=== PATIENT | female | born 1985 | race Caucasian/White ===

== ENCOUNTER 2017-08-06 04:02 | Inpatient (IN) | payer OTHER ==
[2017-08-06] MEDS ORDERED: RINGERS SOLUTION,LACTATED 1,000 ML IV PRN (04:34)
[2017-08-06] MEDS ORDERED: RINGERS SOLUTION,LACTATED 1,000 ML IV ONE (04:34)
[2017-08-06 04:41] LABS: APPEARANCE,URINE CLEAR; BILIRUBIN,URINE NEGATIVE (NEGATIVE); GLUCOSE, URINE NEGATIVE (NEGATIVE); KETONES,URINE NEGATIVE (NEGATIVE); LEUKOCYTE ESTERASE,URINE NEGATIVE (NEGATIVE); NITRITE,URINE NEGATIVE (NEGATIVE); PROTEIN,URINE NEGATIVE (NEGATIVE); URINE SPECIFIC GRAVITY 1.002; UROBILINOGEN,URINE NEGATIVE mg/dL (<2.0)
[2017-08-06 05:06] LABS: URINE BARBITURATES SCREEN NEGATIVE; URINE METHADONE SCREEN NEGATIVE; URINE OPIATES LOW NEGATIVE; URINE PHENCYCLIDINE SCREEN NEGATIVE
[2017-08-06 05:42] LABS: ABSOLUTE EOSINOPHILS # (AUTO) 0.1 10^3/uL (0.0-0.6); ABSOLUTE LYMPHOCYTES (AUTO) 1.7 10^3/uL (0.5-4.7); ABSOLUTE MONOCYTES (AUTO) 0.5 10^3/uL (0.1-1.4); ABSOLUTE NEUT (AUTO) 3.8 10^3/uL (1.7-8.2); BASOPHILS % (AUTO) 0.3 % (0-2); EOSINOPHILS % (AUTO) 1.2 % (0-6); HEMATOCRIT 37.6 % (36.0-47.0); HEMOGLOBIN 13.1 g/dL (12.0-15.5); HGB HCT DIFFERENCE 1.7; LYMPHOCYTES % (AUTO) 27.7 % (13-45); MEAN CORPUSCULAR HEMOGLOBIN 33.7 pg (27.0-33.4); MEAN CORPUSCULAR HGB CONC 34.9 g/dL (32.0-36.0); MEAN CORPUSCULAR VOLUME 97 fl (80-97); MONOCYTES % (AUTO) 8.2 % (3-13); RED CELL DISTRIBUTION WIDTH 13.2 % (11.5-14.0); SEGMENTED NEUTROPHILS % (AUTO) 62.6 % (42-78)
--- NOTE | 2017-08-06 08:49 | L&D Progress Notes ---
PROGRESS NOTES Datetime Report Generated by CPN: 08/06/2017 08:49 PROGRESS NOTE Comment: Irreg UC's, Cat 1 strip SIGNATURE SIGNATURE: [id number] Assignment: Dylan Ibarra DO Signature: with User ID: [email or web address] : with User ID: [email or web address]
[2017-08-06] MEDS ORDERED: OXYTOCIN/NORMAL SALINE 20 UNIT/1,000 ML RTUINJ IV PRN ×2 (10:55→21:49)
[2017-08-06] MEDS ORDERED: CEFAZOLIN 2 GM/D5W RTU 2 GM/50 ML RTUPB IV ONE ×2 (11:02→17:45)
[2017-08-06] MEDS ORDERED: OXYTOCIN/NORMAL SALINE 0 UNIT/0 ML RTUINJ ONE (11:02)
[2017-08-06] MEDS: CEFAZOLIN 2 GM/D5W RTU 2 GM/50 ML RTUPB IV SCH ×2 (11:09→17:44)
--- NOTE | 2017-08-06 12:55 | L&D Progress Notes ---
PROGRESS NOTES Datetime Report Generated by CPN: 08/06/2017 12:55 PROGRESS NOTE Impression: Normal Progression of Labor Plan: Continue Present Management; Augmentation Vital Signs : Reviewed; Within Normal Limits Comment: uc's q 3 min, Cat 1 strip, Pitocin infusing FETUS A FHR - Baseline: 125 Variability: Moderate 6-25bpm Accelerations: 15X15 Decelerations: None FETUS C SIGNATURE: [id number] Assignment: Dylan Ibarra DO Signature: with User ID: [email or web address] : with User ID: [email or web address]
--- NOTE | 2017-08-06 15:39 | L&D Progress Notes ---
PROGRESS NOTES Datetime Report Generated by CPN: 08/06/2017 15:39 PROGRESS NOTE Vital Signs : Reviewed; Within Normal Limits Comment: VE 5-6/100/vtx/0 + bloody show, FSE placed without difficulty due to not being able to continuously monitor heart rate Hsb at BS, irreg uc's declines epidural pt. has been sitting on birthing ball and would like to rest for awhile FETUS A FHR - Baseline: 155 Monitoring: Internal Scalp Electrode Variability: Minimal - Undetectable to <=5bpm Decelerations: None FETUS C SIGNATURE: [id number] Assignment: Dylan Ibarra DO Signature: with User ID: [email or web address] : with User ID: [email or web address]
[2017-08-06] MEDS ORDERED: OXYTOCIN/NORMAL SALINE 20 UNIT/1,000 ML RTUINJ ONE (17:23)
[2017-08-06] MEDS ORDERED: LIDOCAINE 1% INJ-PF (10 MG/ML) 30 ML SDV ONE (17:23)
[2017-08-06] MEDS ORDERED: MISOPROSTOL 0.2 MG TABLET ONE (17:23)
[2017-08-06] MEDS ORDERED: IBUPROFEN 800 MG TABLET ONE (20:48)
--- NOTE | 2017-08-06 21:27 | Delivery Summary ---
Del Sum A-C Datetime Report Generated by CPN: 08/06/2017 21:27 DELIVERY PERSONNEL DELIVERY PERSONNEL: [id number] Delivery Doctor:: Dylan Ibarra, DO Labor and Delivery Nurse:: Fabi Bhatt RNpublic policy analyst Nurse:: GABBIE Shepherd Office Services Associate/ROOM WORKER: Cassie Cutlerom, PCTS MATERNAL INFORMATION Delivery Anesthesia: None Medications After Delivery: Pitocin Drip 20 Units/1000ml NSS Estimated Blood Loss (ml): 250 Maternal Complications: Premature Rupture of Membranes Other Maternal Complications: rupture at 0200 Provider Comments: of viable female in MIKE position Loose nuchal cord x1, easily reduced Placenta delievered spontaneous and intact with 3v cord Fundus firm LABOR SUMMARY EDC: 08/16/2017 00:00 No. Babies in Womb: 1 Attempted: No Labor Anesthesia: None LABOR INFORMATION Reason for Induction: Not Applicable Onset of Labor: 08/06/2017 08:00 Complete Dilatation: 08/06/2017 18:05 Oxytocin: Augmentation Group B Beta Strep: Negative Antibiotics # of Doses: 2 Antibiotics Time of Last Dose: 1745 Name of Antibiotic Given: Ancef 2 Steroids Given: None Reason Steroids Not Administered: Not Applicable MEMBRANES Membranes Rupture Method: Spontaneous Rupture of Membranes: 08/06/2017 02:00 Length of Rupture (hr): 16.82 Amniotic Fluid Color: Clear Amniotic Fluid Amount: Small Amniotic Fluid Odor: None STAGES OF LABOR Stage 1 hr: 10 Stage 1 min: 5 Stage 2 hr: 0 Stage 2 min: 44 Stage 3 hr: 0 Stage 3 min: 4 Total Time in Labor hr: 10 Total Time in Labor min: 53 VAGINAL DELIVERY Episiotomy: None Laceration Extension: Second Degree Laceration Type: Perineal Other Laceration: perineal and clitorial Laceration Repair: Yes Laceration Repair Note: repaired with 2-0 and 3-0 chromic in usual fashion with good hemostasis Sponge Count Correct: N/A Sharps Count Correct: Yes CSECTION DELIVERY Primary Indication: N/A Secondary Indication: N/A CSection Incidence: N/A Labor: N/A Elective: N/A CSection Incision: N/A BABY A INFORMATION Infant Delivery Date/Time: 08/06/2017 18:49 Method of Delivery: Vaginal Born in Route : No : N/A Forceps: N/A Vacuum Extraction: N/A Shoulder Dystocia : No PRESENTATION/POSITION BABY A Presentation: Cephalic Cephalic Presentation: Vertex Vertex Position: Left Occipital Anterior Breech Presentation: N/A PLACENTA INFORMATION BABY A Placenta Delivery Time : 08/06/2017 18:53 Placenta Method of Delivery: Spontaneous Placenta Status: Delivered SCORES BABY A Heart Rate 1 min: >100 bpm Resp Effort 1 min: Good Cry Reflex Irritability 1 min: Cough or Sneeze or Pulls Away Muscle Tone 1 min: Active Motion Color 1 min: Blue/Pale Resuscitation Effort 1 min: Tactile Stimulation SCORE 1 MIN: 8 Heart Rate 5 min: >100 bpm Resp Effort 5 min: Good Cry Reflex Irritability 5 min: Cough or Sneeze or Pulls Away Muscle Tone 5 min: Active Motion Color 5 min: Body Sweet [place], Extremities Blue Resuscitation Effort 5 min: Tactile Stimulation SCORE 5 MIN: 9 INFANT INFORMATION BABY A Gestational Age at Delivery: 38.4 Gestational Status: Early Term- 37- 38.6 Weeks Infant Outcome : Liveborn Infant Condition : Stable Infant Sex: Female IDENTIFICATION BABY A Infant Verification Date/Time: 08/06/2017 19:37 ID Band Number: [id number] Mother's Name Verified: Yes RN Verifying Infant: R Rashel, RNC Additional Verifying Personnel: E Yolande, RN WEIGHT/LENGTH BABY A Infant Birthweight (gm): 2860 Infant Weight (lb): 6 Infant Weight (oz): 5 Infant Length (in): 19.25 Infant Length (cm): 48.90 CORD INFORMATION BABY A No. Cord Vessels: 3 Nuchal Cord : Around Neck x1, Loose Cord Blood Taken: Yes-For Eval (Mom's Blood Type - or O+) Suction: None ASSESSMENT BABY A Infant Complications: None Physical Findings at Delivery: Within Normal Limits Infant Respirations: Appears Normal Skin to Skin: Yes Skin to Skin Time (min): 70 Director Mobile/ALS Called : No Infant Care By: Sheldon Posey [facility] Transferred To: Remains with Mother SIGNATURES Signature: with User ID: [email or web address]
--- NOTE | 2017-08-06 21:39 | Admission Physical ---
Datetime Report Generated by CPN: 08/06/2017 21:39 CURRENT ADMISSION Hx Assessment: The History has been Reviewed and is Current Chief Complaint: Suspected Ruptured Membranes Admit Plan: Admit to Unit ALLERGIES Medication Allergies: No Known Allergies (08/06/2017) OBSTETRICAL HISTORY EDC: 08/16/2017 00:00 : 1 Para: 0 Term: 0 : 0 SAB: 0 IAB: 0 Livin (Annotations: Data stored by [facility] on behalf of user) Gestational Diabetes: No Rh Sensitization: No Incompetent Cervix: No YI: No Infertility: No ART Treatment: No Uterine Anomaly: No IUGR: No Hx Previous C/S: No Macrosomia: No Hx Loss/Stillborn: No PIH: No Hx : No Placenta Previa/Abruption: No Depression/PP Depression: No PTL/PROM: No Post Hemorrhage: No Current Procedures: Ultrasound Obstetrical History Comments: G1-Current SEE RECORDS Alcohol: No Marijuana : No Cocaine: No Other Illicit Drugs: No Cigarettes: Never Smoker. [id number] MEDICAL HISTORY Diabetes: No Blood Transfusion: No Pulmonary Disease (Asthma, TB): No Breast Disease: No Hypertension: No Supervisor Remelt Surgery: No Heart Disease: No Hosp/Surgery: No Autoimmune Disorder: No Anesthetic Complications: Unknown Kidney Disease: No Abnormal Pap Smear: No Neuro/Epilepsy: No Psychiatric Disorders: No Other Medical Diseases: No Hepatitis/Liver Disease: No Varicosities/Phlebitis: No Trauma/Violence : No Thyroid Dysfunction: No INFECTIOUS HISTORY Gonorrhea: No Genital Herpes: No Chlamydia: No Tuberculosis: No Syphilis: No Hepatitis: No HIV/AIDS Exposure: No Rash or Viral Illness: No HPV: No PHYSICAL EXAM General: Normal HEENT: Normal Neurologic: Normal Thyroid: Normal Heart: Normal Lungs: Normal Breast: Normal Back: Normal Abdomen: Normal Genitourinary Exam: Normal Extremities: Normal DTRs: Normal Pelvic Type: Adequate Physical Exam Comments: gross rom of clear fluid per rn gbs neg FETUS A EGA: 38.4 Monitoring: External US FHR Category: Category I Admit Comment: Term SROM -pt prefers heplock only for now--offered pit augmentation but pt declines for now PLANS FOR LABOR AND DELIVERY Pain Management: Natural; Medications; Epidural Feeding Preference: Breast Benefit of Breast Feed Discussed: Yes Circumcision: N/A INFORMED CONSENT Signature: with User ID: [email or web address]
[2017-08-06] MEDS ORDERED: ACETAMINOPHEN WITH CODEINE #3 TABLET PO PRN ×2 (21:49)
[2017-08-06] MEDS ORDERED: BENZOCAINE/MENTHOL AEROSOL SPRAY 56 ML TOP PRN (21:49)
[2017-08-06] MEDS ORDERED: DIBUCAINE 1% OINTMENT 28 GM TP PRN (21:49)
[2017-08-06] MEDS ORDERED: DIPH/PERTUSS(ACELL)/TETANUS VAC/PF 0.5 ML SYR (>=10YO) IM PRN (21:49)
[2017-08-06] MEDS ORDERED: MEASLES,MUMPS&RUBELLA VACC/PF 0.5 ML VIAL SUBCUT PRN (21:49)
[2017-08-06] MEDS ORDERED: ZOLPIDEM TARTRATE 5 MG TABLET PO PRN (21:49)
[2017-08-06] MEDS: IBUPROFEN 800 MG TABLET PO SCH (22:34)
[2017-08-07] MEDS: IBUPROFEN 800 MG TABLET PO SCH ×3 (05:52→21:15)
[2017-08-07 07:43] LABS: HEMATOCRIT 33.3 % (36.0-47.0); HEMOGLOBIN 11.1 g/dL (12.0-15.5); MEAN CORPUSCULAR HEMOGLOBIN 32.7 pg (27.0-33.4); MEAN CORPUSCULAR HGB CONC 33.3 g/dL (32.0-36.0); MEAN CORPUSCULAR VOLUME 98 fl (80-97); RED BLOOD COUNT 3.39 10^6/uL (3.72-5.28); WHITE BLOOD COUNT 10.1 10^3/uL (4.0-10.5)
[2017-08-07] MEDS: DOCUSATE SODIUM 100 MG CAPSULE PO SCH ×2 (09:31→18:10)
[2017-08-07] MEDS: PRENATAL VITAMIN W-O CA NO5/FE FUMARATE/FA CAPSULE PO SCH (09:31)
[2017-08-07] MEDS: FERROUS SULFATE 325 MG TABLET PO SCH ×2 (09:32→18:10)
[2017-08-07] MEDS: SENNOSIDES/DOCUSATE 8.6-50 MG 1 EACH TABLET PO SCH (09:32)
--- NOTE | 2017-08-07 13:45 | PDOC PROGRESS REPORT ---
Subjective-OB Subjective: Post Delivery Day: 1 32 year old. Denies any needs at this time, states lochia is stable, pain well controlled, voiding without difficulty Physical Exam (OB) Vital Signs: Temp Pulse Resp BP Pulse Ox 97.8 F 76 15 107/64 100 08/07/17 08:03 08/07/17 08:03 08/07/17 08:03 08/07/17 08:03 08/07/17 08:03 Intake & Output 08/06/17 08/07/17 08/08/17 06:59 06:59 06:59 Weight 63.3 kg - PIH/Pre-Eclampsia Clonus: Negative - Lochia Lochia Amount: Scant < 10 ml Lochia Color: Rubra/Red - Abdomen Description: Soft, Flat Hernia Present: No Fundal Description: Firm, Midline Fundal Height: u/u - u/2 Objective-Diagnostic Laboratory: 08/07/17 07:35 08/07/17 07:35 WBC 10.1 RBC 3.39 L Hgb 11.1 L Hct 33.3 L MCV 98 H MCH 32.7 MCHC 33.3 RDW 13.0 Plt Count 110 L Assessment and Plan(PN) - Assessment and Plan (1) Vaginal delivery Is this a current diagnosis for this admission?: Yes Plan: routine pp care (2) Acute blood loss anemia Is this a current diagnosis for this admission?: Yes Plan: ferrous sulfate increase dietary iron - Time Spent with Patient Time with patient: Less than 15 minutes Critical Time spent with patient: Less than 15 minutes Medications reviewed and adjusted accordingly: Yes - Disposition Anticipated Discharge: Home Within: within 24 hours
[2017-08-08] MEDS: IBUPROFEN 800 MG TABLET PO SCH ×2 (05:01→14:02)
[2017-08-08 08:55] VITALS: BP 106/69
[2017-08-08] MEDS: DOCUSATE SODIUM 100 MG CAPSULE PO SCH (09:59)
[2017-08-08] MEDS: FERROUS SULFATE 325 MG TABLET PO SCH (09:59)
[2017-08-08] MEDS: PRENATAL VITAMIN W-O CA NO5/FE FUMARATE/FA CAPSULE PO SCH (09:59)
[2017-08-08] MEDS: SENNOSIDES/DOCUSATE 8.6-50 MG 1 EACH TABLET PO SCH (09:59)
--- NOTE | 2017-08-08 13:06 | PDOC DISCHARGE SUMMARY ---
General - Admit/Disc Date/PCP Admission Date/Primary Care Provider: 08/06/17 04:29 CHEY ROD MD Discharge Date: 08/08/17 - Discharge Diagnosis (1) Acute blood loss anemia Is this a current diagnosis for this admission?: Yes (2) Vaginal delivery Is this a current diagnosis for this admission?: Yes - Additional Information Home Medications: Prenat 115/Iron Fum/Folic/Dss [ 19 Tablet] 1 tab PO DAILY 08/06/17 Terconazole 1 appful PV DAILY 08/06/17 History of Present Illness History of Present Illness: VARGHESE GRIFFIN is a 32 year old female Hospital Course Hospital Course: normal vaginal delivery with normal course. Physical Exam - Physical Exam Vital Signs: Temp Pulse Resp BP Pulse Ox 98.0 F 85 16 106/69 98 08/08/17 11:59 08/08/17 11:59 08/08/17 11:59 08/08/17 11:59 08/08/17 11:59 General appearance: PRESENT: no acute distress, cooperative - Obstetrical Exam Fundal Height: u/u - u/2 Tender: No Result Laboratory Results: 08/07/17 07:35 Plan Discharge Plan: discharge home with follow up check in 4 wks. Time Spent: Less than 30 Minutes
== END 2017-08-08 16:12 | disposition home or self-care (01) | DRG 775 ==
LOC: LC 04:02 → LR 04:29 → 2S 21:38
PROVIDERS: ADMIT Specialist; ATTEND Specialist
PROC: 10E0XZZ Delivery of Products of Conception, External Approach (ICD-10-PCS; principal; 2017-08-06)
PROC: 0KQM0ZZ Repair Perineum Muscle, Open Approach (ICD-10-PCS; 2017-08-06)
PROC: 4A1H7CZ Monitoring of Products of Conception, Cardiac Rate, Via Natural or Artificial Opening (ICD-10-PCS; 2017-08-06)
PROC: 10H073Z Insertion of Monitoring Electrode into Products of Conception, Via Natural or Artificial Opening (ICD-10-PCS; 2017-08-06)
DX: O69.81X0 Labor and delivery complicated by cord around neck, without compression, not applicable or unspecified (principal); D62 Acute posthemorrhagic anemia; O99.02 Anemia complicating childbirth; O70.1 Second degree perineal laceration during delivery; Z3A.38 38 weeks gestation of pregnancy; Z37.0 Single live birth
CPT/HCPCS: 36415; 80307; 81005; 85025; 85027; 86592; 86850; 86900; 86901; 88307; 90715; J0690; J2590; J3490